=== PATIENT | female | born 1995 | race Caucasian/White ===

== ENCOUNTER 2022-02-03 17:41 | Emergency (ER) | payer MEDICAID ==
[~2022-02-03] VITALS: Ht 154.9 cm; Wt 59.0 kg
[2022-02-03] MEDS ORDERED: ONDANSETRON HCL 4MG/2ML INJ IV STA (18:45)
[2022-02-03] MEDS ORDERED: NITROGLYCERIN 0.4MG TABLET SL SL PRN (18:45)
[2022-02-03] MEDS ORDERED: ASPIRIN 81MG TABLET PO ONE (18:45)
[2022-02-03] MEDS ORDERED: MECLIZINE 25MG TABLET PO ONE (18:45)
[2022-02-03] MEDS ORDERED: SODIUM CHLORIDE 0.9% 1,000 ML IV ONE (18:45)
[2022-02-03 20:04] LABS: BASOPHILS % 0.3 % (0.0-2.0); EOSINOPHILS % 0.1 % (0.0-5.0); HEMATOCRIT. 40.2 % (36.0-48.0); HEMOGLOBIN. 13.6 g/dL (12.0-16.0); LYMPHOCYTES % 9.2 % (20.0-50.0); MEAN CORPUSCULAR HEMOGLOBIN 30.8 pg (28.0-32.0); MEAN CORPUSCULAR VOLUME 90.8 fL (81.0-99.0); MONOCYTES % 2.1 % (2.0-8.0); NEUTROPHILS % 88.3 % (40.0-76.0); RED BLOOD CELL COUNT 4.42 mill/uL (4.2-5.4); RED CELL DISTRIBUTION WIDTH 12.1 % (11.6-14.6)
[2022-02-03 20:16] LABS: CHLORIDE 108 mEq/L (98-107)
[2022-02-03 20:18] LABS: HCG SCREEN NEGATIVE
[2022-02-03 20:37] LABS: MEAN PLATELET VOLUME 9.2 fl (7.4-10.4); PLATELET 232 x1000/uL (130-400)
[2022-02-03 21:22] LABS: D-DIMER 0.24 mg/L FEU (<0.50); INR 1.1; PARTIAL THROMBOPLASTIN TIME 27.6 sec (23.4-31.0); PROTHROMBIN TIME 11.9 sec (9.6-11.0)
[2022-02-03] MEDS ORDERED: MECL-159 PO (21:57)
[2022-02-03 22:55] VITALS: BP 100/56
== END 2022-02-03 23:15 | disposition home or self-care (01) ==
LOC: ER 17:41
DX: R07.89 Other chest pain (principal); R42 Dizziness and giddiness; I49.9 Cardiac arrhythmia, unspecified; R11.2 Nausea with vomiting, unspecified
CPT/HCPCS: 36415; 71045; 80053; 83880; 84484; 84703; 85025; 85379; 85610; 85730; 93005; 96361; 96374; 99285; J2405; J7030; J8597; Z7610